=== PATIENT | male | born 1940 | race African-American/Black ===

== ENCOUNTER 2017-10-20 07:38 | Observation (INO) ==
[2017-10-20] MEDS ORDERED: Labetalol HCl Inj 100 MG/20 ML Vial IV.PUSH ONE ×2 (08:14→10:54)
[2017-10-20] MEDS ORDERED: Benzocaine 20% Oral Spray 60 ML Can OROPHARYNG ONE (08:21)
[2017-10-20 08:30] LABS: Hematocrit 46.8 % (39.0-51.0); Hemoglobin 15.8 gm/dL (13.0-17.0); Mean Corpuscular HGB Conc 33.8 % (32.0-36.0); Mean Corpuscular Hemoglobin 30.7 pg (27.0-34.0); Mean Corpuscular Volume 90.6 fL (80.0-100.0); Mean Platelet Volume 8.5 fL (7.0-11.0); Platelet Count 264 th/mm3 (150-450); Red Blood Count 5.17 mil/mm3 (4.50-5.90); Red Cell Distribution Width 13.5 % (11.6-17.2); White Blood Count 7.6 th/mm3 (4.0-11.0)
[2017-10-20 08:36] LABS: Activated Partial Thrombo Time 25.3 sec (24.3-30.1); INR 1.1 Ratio; Prothrombin Time 10.9 sec (9.8-11.6)
--- NOTE | 2017-10-20 08:47 | ED ---
HPI General Chief complaint: Medical Clearance Stated complaint: nosebleed Time Seen by Provider: 10/20/17 07:55 Source: patient, family and old records reviewed Mode of arrival: ambulatory Limitations: no limitations History of Present Illness HPI narrative: Patient is a 77-year-old male, past medical history significant for previous bladder cancer, hypertension, who presents with complaint of nosebleed. He states that he was here 2 days ago for nosebleed which had resolved prior to arrival. He was then discharged home. He woke up this morning with his sheets covered in blood and brisk bleeding coming out of bilateral nares worse on the left. Prior to 2 days ago this is never happened before. He denies any recent cold or allergy symptoms. He is not on any blood thinners and denies taking any aspirin or [id number] supplements. Onset (ago): minute(s) Location: face Radiation: non-radiation Severity: severe Pain Consistency: constant Relieving factors: none Exacerbating factors: none Associated symptoms: denies other symptoms Related Data Home Medications Medication Instructions Recorded Confirmed alprazolam 0.5 mg PO DAILY 10/17/17 10/20/17 hydrocodone-acetaminophen [[place]] 1 tab PO Q8HR PRN 10/17/17 10/20/17 lisinopril 20 mg PO DAILY 10/17/17 10/20/17 metoprolol tartrate 50 mg PO DAILY 10/17/17 10/20/17 tamsulosin [Flomax] 0.4 mg PO DAILY 10/17/17 10/20/17 Allergies Allergy/AdvReac Type Severity Reaction Status Date / Time No Known Allergies Allergy Unverified 10/17/17 06:28 Review of Systems ROS: all other systems reviewed are negative [facility] Medical History Medical History Bladder CA in situ (Acute) Hypertension (Acute) Social History Social History Substance History: Active Abuse Second Hand Smoke Exposure: Yes Smoking Status: Current every day smoker Tobacco Type: Cigarettes How Often Do You Have a Drink Containing Alcohol: Never Recent Travel in [facility] within the Last 8 Weeks: No Recent Out of Country Travel within the Last 8 Weeks: No Substance Abuse Detail Marijuana: Substance Use Status: Active Route Used Substance Abuse: By Mouth Immunization History Tetanus Immunization: <5 Years Hx Influenza Vaccine This Season: No Exam Narrative Exam Narrative: GENERAL: Well-appearing male with brisk bleeding from bilateral nares, coughing up clots of blood SKIN: Focused skin assessment warm/dry. HEAD: Atraumatic. Normocephalic. EYES: Pupils equal and round. No scleral icterus. No injection or drainage. ENT: Mucous membranes pink and moist, but covered in blood. Brisk bleeding from bilateral nares, worse on the left. No visible bleeding source NECK: Trachea midline. No JVD. CARDIOVASCULAR: Regular rate and rhythm. No murmur appreciated. Intact and equal peripheral pulses. RESPIRATORY: No accessory muscle use. Clear to auscultation. Breath sounds equal bilaterally. GASTROINTESTINAL: Abdomen soft, non-tender, nondistended. Hepatic and splenic margins not palpable. MUSCULOSKELETAL: No obvious deformities. No clubbing. No cyanosis. No edema. NEUROLOGICAL: Awake and alert. No obvious cranial nerve deficits. Motor grossly within normal limits. Normal speech. PSYCHIATRIC: Appropriate mood and affect; insight and judgment normal. Procedures Epistaxis Control Time Out Performed: Yes Nostril: left, right and bilateral Nose Prepped With: oxymetazoline Direct Inspection: unable to visualize Clots Removed by: blowing nose Cautery Used: none Device Inserted: nasal tampon Patient Tolerated Procedure: well Complications: pain Course Initial Documented Vital Signs Temperature 97.4 F L 10/20/17 07:42 Pulse Rate 90 10/20/17 07:42 Respiratory Rate 20 10/20/17 07:42 Blood Pressure 247/114 H 10/20/17 07:42 Pulse Oximetry 95 10/20/17 07:42 Last Documented Vital Signs Temperature 97.4 F L 10/20/17 07:42 Pulse Rate 65 10/20/17 08:40 Respiratory Rate 22 10/20/17 08:40 Blood Pressure 230/107 H 10/20/17 09:25 Pulse Oximetry 99 10/20/17 08:40 Critical Care Time Critical Care Time: Yes Total Critical Care Time: 40 Attestation: Aggregate critical care time was 40 minutes. Time to perform other separately billable procedures was not included in the critical care time. My time did not include minutes spent treating any other patients simultaneously or on activities that did not directly contribute to the patient's treatment. The services I provided to this patient were to treat and/or prevent clinically significant deterioration that could result in: , disability, hemorrhage. I provided critical care services requiring my management, as noted below: Chart data review, documentation time, medication orders and management, vital sign assessments/reviewing monitor data, ordering and reviewing lab tests, ordering and interpreting/reviewing x-rays and diagnostic studies, care of the patient and discussion of the patient with the admitting physicians. Medical Decision Making MDM Narrative Medical decision making narrative: Patient is a 77-year-old male who presents with complaint of epistaxis. He had profuse brisk bleeding on arrival but was hemodynamically stable. Blood pressure was markedly elevated and he was given 10 mg of labetalol while hemostasis was attempted. Afrin was placed in bilateral nostrils after clots were blown out and pressure was held. He continued to have bleeding at which time Hurricaine spray was applied and an anterior posterior pack was placed in the left nare. The bleeding then ceased. He was given his home antihypertensives but remains hypertensive. I spoke with the patient and his family member extensively who did not feel comfortable going home at this time. I then spoke with the admitting resident who agreed to the patient's admission. He has been given another dose of IV antihypertensive to try and control his hypertension. Medical Screen Exam Complete: Yes Emergency Medical Condition: Yes Differential Diagnosis Differential Diagnosis: Differential diagnosis includes but is not limited to anterior epistaxis, posterior epistaxis, platelet abnormality, anemia. Medical Records Medical records reviewed: Yes I reviewed the patient's medical records. Lab Data Lab results reviewed: Yes I reviewed the patient's lab results. Lab results narrative: Acutely unremarkable. Result diagrams: 10/20/17 08:15 10/20/17 08:15 Lab Results 10/20/17 10/20/17 10/20/17 Range/Units 08:15 08:15 08:15 WBC 7.6 (4.0-11.0) th/mm3 RBC 5.17 (4.50-5.90) mil/mm3 Hgb 15.8 (13.0-17.0) gm/dL Hct 46.8 (39.0-51.0) % MCV 90.6 (80.0-100.0) fL MCH 30.7 (27.0-34.0) pg MCHC 33.8 (32.0-36.0) % RDW 13.5 (11.6-17.2) % Plt Count 264 (150-450) th/mm3 MPV 8.5 (7.0-11.0) fL PT 10.9 (9.8-11.6) sec INR 1.1 Ratio APTT 25.3 (24.3-30.1) sec Sodium 144 (136-145) meq/L Potassium 4.0 (3.5-5.1) meq/L Chloride 108 H (98-107) meq/L Carbon Dioxide 28.6 (21.0-32.0) meq/L Anion Gap 7 (5-15) meq/L BUN 20 H (7-18) mg/dL Creatinine 1.67 H (0.60-1.30) mg/dL Estimated GFR 49 L (>89) mL/min Random Glucose 112 H (74-106) mg/dL Calcium 8.9 (8.5-10.1) mg/dL Discharge Plan Discharge Disposition Patient Disposition: 30 Still Patient Discharge Condition Condition: Stable Discharge Details Diagnosis: Posterior epistaxis, Hypertensive urgency Physicians Team ED Provider: Suzanna Ross Primary Care Provider: Ozzy Haque Rxs /Orders / Referrals /Forms Prescriptions: No Action lisinopril 20 mg Tablet 20 mg PO DAILY RF: 0 hydrocodone-acetaminophen [[place]] 10-325 mg Tablet 1 tab PO Q8HR PRN (Reason: Pain) RF: 0 metoprolol tartrate 50 mg Tablet 50 mg PO DAILY RF: 0 alprazolam 0.5 mg Tablet 0.5 mg PO DAILY RF: 0 tamsulosin [Flomax] 0.4 mg Capsule,Extended Release 24hr 0.4 mg PO DAILY RF: 0 Discharge Interventions Interventions: Vital Signs Last Done: 10/20/17 09:25 Status ED Status: With Doctor
[2017-10-20 08:48] LABS: Calcium 8.9 mg/dL (8.5-10.1); Carbon Dioxide 28.6 meq/L (21.0-32.0)
[2017-10-20] MEDS ORDERED: Lisinopril 20 MG Tablet PO ONE (09:32)
[2017-10-20] MEDS ORDERED: Metoprolol Tartrate 50 MG Tablet PO ONE (09:32)
--- NOTE | 2017-10-20 11:41 | P.HPFP ---
History of Present Illness Primary Care Physician: Ozzy Haque MD <Coy Fairbanks - 10/20/17 15:31> Ozzy Haque MD <Massimo Brooks III Hussein 10/20/17 11:41> History of Present Illness: Mr Schmidt is a 77 YO male with PMHx HTN, bladder cancer in situ, and recently seen in ED on Monday for nosebleed who presents to ED with nosebleed that was present when he woke up with blood all over his sheets. BP in ED is 230/105. He never had this problem prior to being seen for bladder cancer, but this is the second nosebleed this week. He is in the ED with his of 18 years, Ms Margy Baez. He measures his BP at home frequently but his reports his systolic BP is often at 200 or above. He takes Lisinopril 20 mg and Metoprolol tartrate 50 mg daily to manage his BP. He feels like his left eye has been watery for sometime now and has bilateral cataracts. His bladder cancer was found several years ago and treated non-surgically. He is scheduled for TURP in two weeks. He has smoked 1/2 ppd for >60 years, denies EtOH, and recreational drugs, except that there is distant past use of marijuana. Denies CP, SOB, dysuria, hematuria, abdominal pain, past kidney problems, denies dizziness, MARY, and visual changes. Fam Hx: Unsure of family Hx. Doesn't know what his mother and father from or at what ages. <Massimo Brooks III 10/20/17 15:22> - Diagnosis (1) Posterior epistaxis (2) Hypertensive urgency <Coy Fairbanks 10/20/17 15:31> (1) Posterior epistaxis (2) Hypertensive urgency <Massimo Brooks III 10/20/17 14:41> Review of Systems Constitutional: Denies chills, Denies fever(s), Denies headache(s) <Massimo Brooks III 10/20/17 15:22> Eyes: Reports other (bilateral cataracts), Denies change in vision <Massimo Brooks III 10/20/17 15:22> Ears, Nose, Mouth, and Throat: Reports nosebleed, Denies headache(s), Denies mouth lesions, Denies nasal trauma <Massimo Brooks III 10/20/17 15:22> Cardiovascular: Denies chest pain, Denies lightheadedness <Massimo Brooks III 10/20/17 15:22> Respiratory: Denies cough, Denies shortness of breath <Cecilia PATTONMassimo 15:22> Gastrointestinal: Denies abdominal pain, Denies black, tarry stools, Denies bright, red blood in stools, Denies loose stools, Denies nausea, Denies vomiting <Massimo Brooks III 10/20/17 15:22> Genitourinary: Denies blood in urine, Denies painful urination, Denies urinary frequency <Cecilia PATTONMassimo Savage 10/20/17 15:22> Skin/Breast: Denies changing lesions, Denies new lesions, Denies rash <Cecilia PATTONMassimo 10/20/17 15:22> Neurologic: Denies dizziness, Denies headache(s) <Cecilia PATTONMassimo H 15:22> PMFSH - History History Provided By: Patient <Massimo Brooks III 10/20/17 11:41> - Medical / Surgical Hx Neg / Unobtainable Surgical History: No Previous Surgery <Massimo Brooks III 10/20/17 12:22> - Medical History Medical History: Medical History (Last Reviewed 10/20/17 @ 08:46 by Suzanna Ross MD) Bladder CA in situ Hypertension <Coy Fairbanks 10/20/17 15:31> Medical History (Last Reviewed 10/20/17 @ 08:46 by Suzanna Ross MD) Bladder CA in situ Hypertension <Cecilia PATTONMassimo Savage 10/20/17 11:41> - Family History Family History: Family History (Last Updated 10/20/17 @ 12:11 by Massimo Brooks III, MD, R2) Other Family history unknown <Coy Fairbanks 10/20/17 15:31> Family History (Last Updated 10/20/17 @ 12:11 by Massimo Brooks III, MD, R2) Other Family history unknown <Cecilia PATTONMassimo Savage 10/20/17 15:22> - Tobacco History Second Hand Smoke Exposure: Yes <Massimo Brooks III 10/20/17 11:41> Tobacco Use In Past 30 Days: Yes <Massimo Brooks III 10/20/17 11:41> Smoking Status: Current every day smoker <Massimo Brooks III 10/20/17 11:41> Tobacco Type: Cigarettes <Massimo Brooks III 10/20/17 11:41> Packs Per Day: 0.5 <Massimo Brooks III 10/20/17 12:22> Years Smoked: 63 (since he was 13 yo) <Masismo Brooks III 10/20/17 12:22> - Alcohol History How Often Do You Have a Drink Containing Alcohol: Never <Massimo Brooks III 10/20/17 11:41> - Substance Use History Substance History: Past History <Massimo Brooks III 10/20/17 12:22> - Substance Use Type Marijuana Status: Active <Massimo Brooks III 10/20/17 11:41> Route Used: By Mouth <Massimo Brooks III 10/20/17 11:41> - Travel History Recent Travel in the [facility] Within the Last 8 Weeks: No <Massimo Brooks III 11:41> Recent Travel Out of the Country Within the Last 8 Weeks: No <Massimo Brooks III 10/20/17 11:41> - Immunization History Tetanus Immunization: <5 Years <Massimo Brooks III 10/20/17 11:41> Hx Influenza Vaccine This Season: No <Massimo Brooks III 10/20/17 11:41> Medications and Allergies Allergies Allergy/AdvReac Type Severity Reaction Status Date / Time No Known Allergies Allergy Unverified 10/17/17 06:28 <Coy Fairbanks - 10/20/17 15:31> Home Medications Medication Instructions Recorded Confirmed Type alprazolam 0.5 mg PO DAILY 10/17/17 10/20/17 History hydrocodone-acetaminophen [[place]] 1 tab PO Q8HR PRN 10/17/17 10/20/17 History lisinopril 20 mg PO DAILY 10/17/17 10/20/17 History metoprolol tartrate 50 mg PO DAILY 10/17/17 10/20/17 History tamsulosin [Flomax] 0.4 mg PO DAILY 10/17/17 10/20/17 History <MagdiCoy Nicole - 10/20/17 15:31> Active Medications: Active Medications Al Hydroxide/Mg Hydroxide (Milk Of Mary [place] Yo) 30 ml PO Q12H PRN PRN Reason: Mild Constipation Amlodipine Besylate (Norvasc) 5 mg PO DAILY [facility] Last Admin: 10/20/17 12:15 Dose: 5 mg Chlorthalidone (Hygroton) 25 mg PO DAILY [facility] Last Admin: 10/20/17 12:41 Dose: 25 mg Lisinopril (Prinivil) 20 mg PO DAILY [facility] Senna/Docusate Sodium (Maria-Colace) 1 tab PO BID [facility] Sennosides (Senokot) 17.2 mg PO Q12H PRN PRN Reason: Moderate Constipation <Coy Fairbanks 10/20/17 15:31> Exam Vital signs: Vital Signs 10/20/17 07:42 10/20/17 08:32 10/20/17 08:40 Temperature 97.4 F L Pulse Rate 90 86 65 Respiratory Rate 20 22 22 Blood Pressure 247/114 H 246/109 H 189/88 H Pulse Oximetry 95 100 99 10/20/17 09:25 10/20/17 11:50 10/20/17 11:55 Temperature Pulse Rate 65 61 Respiratory Rate 17 17 Blood Pressure 230/107 H 209/101 H 204/100 H Pulse Oximetry 99 98 10/20/17 12:43 Temperature Pulse Rate Respiratory Rate Blood Pressure 196/98 H Pulse Oximetry Intake & Output 10/19/17 10/20/17 10/20/17 18:59 06:59 18:59 Weight 117.934 kg <Coy Fairbanks 10/20/17 15:31> Vital Signs 10/20/17 07:42 10/20/17 08:32 10/20/17 08:40 Temperature 97.4 F L Pulse Rate 90 86 65 Respiratory Rate 20 22 22 Blood Pressure 247/114 H 246/109 H 189/88 H Pulse Oximetry 95 100 99 10/20/17 09:25 Temperature Pulse Rate Respiratory Rate Blood Pressure 230/107 H Pulse Oximetry Intake & Output 10/19/17 10/20/17 10/20/17 18:59 06:59 18:59 Weight 117.934 kg <Massimo Brooks III - 10/20/17 11:41> Narrative: GENERAL: Elderly AA male lying in bed with tamponade in left nare covered in blood and some blood on a towel and on the bed sheet. NAD. SKIN: Warm and dry. No lesion or rash. HEAD: Normocephalic. Atraumatic. Dentures appreciated in upper mouth with oropharynx clear. tamponade in left nare covered in blood; right nare clear. EYES: No scleral icterus. Watery drainage. Eyes are cloudy with cataracts bilaterally. NECK: Supple, trachea midline. No JVD or lymphadenopathy. CARDIOVASCULAR: Regular rate and rhythm without murmurs, gallops, or rubs. RESPIRATORY: Breath sounds equal bilaterally. No accessory muscle use. GASTROINTESTINAL: Abdomen soft, non-tender, nondistended. MUSCULOSKELETAL: No cyanosis, or edema. BACK: Nontender without obvious deformity. No CVA tenderness. <DuniaMassimo alcantara III - 10/20/17 15:22> Results - Labs Result diagrams: 10/20/17 08:15 10/20/17 08:15 <Coy Fairbanks - 10/20/17 15:31> Abnormal lab results 10/20/17 Range/Units 08:15 Chloride 108 H (98-107) meq/L BUN 20 H (7-18) mg/dL Creatinine 1.67 H (0.60-1.30) mg/dL Estimated GFR 49 L (>89) mL/min Random Glucose 112 H (74-106) mg/dL Short CBC 10/20/17 Range/Units 08:15 WBC 7.6 (4.0-11.0) th/mm3 Hgb 15.8 (13.0-17.0) gm/dL Hct 46.8 (39.0-51.0) % Plt Count 264 (150-450) th/mm3 [facility] 10/20/17 08:15 Sodium 144 Potassium 4.0 Chloride 108 H Carbon Dioxide 28.6 BUN 20 H Creatinine 1.67 H Calcium 8.9 Cardiac Enzymes 10/20/17 Range/Units 14:16 Troponin I 0.03 (0.02-0.05) ng/mL <Coy Fairbanks - 10/20/17 15:31> Abnormal lab results 10/20/17 Range/Units 08:15 Chloride 108 H (98-107) meq/L BUN 20 H (7-18) mg/dL Creatinine 1.67 H (0.60-1.30) mg/dL Estimated GFR 49 L (>89) mL/min Random Glucose 112 H (74-106) mg/dL Short CBC 10/20/17 Range/Units 08:15 WBC 7.6 (4.0-11.0) th/mm3 Hgb 15.8 (13.0-17.0) gm/dL Hct 46.8 (39.0-51.0) % Plt Count 264 (150-450) th/mm3 [facility] 10/20/17 08:15 Sodium 144 Potassium 4.0 Chloride 108 H Carbon Dioxide 28.6 BUN 20 H Creatinine 1.67 H Calcium 8.9 <Massimo Brooks III - 10/20/17 11:41> - Imaging Impressions Abdomen/Bladder Ultrasound 10/20/17 00:00 CONCLUSION: No evidence of hydronephrosis. <Coy Fairbanks - 10/20/17 15:31> Caprini VTE Risk Assessment Caprini VTE Risk Assessment: Moderate/High Risk (score >= 2) <Massimo Brooks III - 10/20/17 15:22> VTE Pharmacological Exception Reason: Active bleeding (nosebleed) <Massimo Brooks III - 10/20/17 15:22> Caprini Risk Assessment Model: Point Value = 1 Point Value = 2 Point Value = 3 Point Value = 5 Age 41-60 Minor surgery BMI > 25 kg/m2 Swollen legs Varicose veins or History of unexplained or recurrent spontaneous Oral contraceptives or hormone replacement Sepsis (< 1 month) Serious lung disease, including pneumonia (< 1 month) Abnormal pulmonary function Acute myocardial infarction Congestive heart failure (< 1 month) History of inflammatory bowel disease Medical patient at bed rest Age 61-74 Arthroscopic surgery Major open surgery (> 45 min) Laparoscopic surgery (> 45 min) Malignancy Confined to bed (> 72 hours) Immobilizing plaster cast Central venous access Age >= 75 History of VTE Family history of VTE Factor V Leiden Prothrombin 49519H Lupus anticoagulant Anticardiolipin antibodies Elevated serum homocysteine Heparin-induced thrombocytopenia Other congenital or acquired thrombophilia Stroke (< 1 month) Elective arthroplasty Hip, pelvis, or leg fracture Acute spinal cord injury (< 1 month) <Coy Fairbanks Nicole - 10/20/17 15:31> Prophylaxis Regimen: Total Risk Factor Score Risk Level Prophylaxis Regimen 0-1 Low Early ambulation 2 Moderate Order ONE of the following: *Sequential Compression Device (SCD) *Heparin 5000 units SQ BID 3-4 Higher Order ONE of the following medications: *Heparin 5000 units SQ TID *Enoxaparin/Lovenox 40 mg SQ daily (WT < 150 kg, CrCl > 30 mL/min) *Enoxaparin/Lovenox 30 mg SQ daily (WT < 150 kg, CrCl > 10-29 mL/min) *Enoxaparin/Lovenox 30 mg SQ BID (WT < 150 kg, CrCl > 30 mL/min) AND/OR *Sequential Compression Device (SCD) 5 or more Highest Order ONE of the following medications: *Heparin 5000 units SQ TID (Preferred with Epidurals) *Enoxaparin/Lovenox 40 mg SQ daily (WT < 150 kg, CrCl > 30 mL/min) *Enoxaparin/Lovenox 30 mg SQ daily (WT < 150 kg, CrCl > 10-29 mL/min) *Enoxaparin/Lovenox 30 mg SQ BID (WT < 150 kg, CrCl > 30 mL/min) AND *Sequential Compression Device (SCD) <Coy Fairbanks Nicole - 10/20/17 15:31> Assessment and Plan - Assessment (1) Posterior epistaxis Code(s): R04.0 - Epistaxis Status: Acute (2) Hypertensive urgency Code(s): I16.0 - Hypertensive urgency Status: Acute <Coy Fairbanks - 10/20/17 15:31> (1) Posterior epistaxis Code(s): R04.0 - Epistaxis Status: Acute (2) Hypertensive urgency Code(s): I16.0 - Hypertensive urgency Status: Acute <Massimo Brooks III - 10/20/17 14:41> - Assessment and Plan 77 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 Pt's "normal SBP usually in the 200s and 247/114 on admission in ED. One hour after Labetalol 20 mg IV, lisinopril 20 mg and Metoprolol tartrate 50 mg, pt's BP 204/100; following amlodipine 5 mg 12:15 and chlorthalidone 25 mg at 12:41, pt BP 196/98 at 12:43. Impression: -Labetalol -EKG pending -Troponin 0.03 -TSH 0.449 -Renal US negative -CBC wnl -CMP with BUN/Cr 1.67; Baseline Cr 1.4-1.5 over past 2 years Hypertensive urgency--first 24 hours goal is to reduce BP 10%; further depression could damage vascular beds -Goal: SBP 180-200 / DBP 90 -Chlorthalidone 25 mg PO daily -Amlodipine 5 mg PO daily -Lisinopril 20 mg daily -Metoprolol tartrate 50 mg once in ED; holding home dose -Normal renal US Recurrent nosebleeds -Tamponade PRN -Afrin 2 sprays in affected nostril PRN; discontinue within 10 days -Consider silver nitrate if Afrin and tamponade unsuccessful -Consider ENT referral FEN/GI/PPx: Fluids: PO fluids Electrolytes: wnl, will monitor daily and replete as necessary Nutrition: regular diet with sodium restriction </= 2 gm daily GI: not indicated PPx: SCDs; holding Lovenox due to nosebleeds PRN bowel regimen Pt SDW Evangelista Fairbanks and Ottoniel <Massimo Brooks III - 10/20/17 15:22> - Attending Attestation The exam, history, and the medical decision-making described in the above note were completed with the assistance of the resident physician. I reviewed and agree with the findings presented. I attest that I had a [id number] encounter with the patient on the same day, and personally performed and documented my assessment and findings in the medical record. I saw this patient personally at about 1:30 PM. Patient with history of uncontrolled hypertension and bladder cancer in situ presents with hypertensive urgency (without evidence of end organ damage) and epistaxis. Epistaxis is new, and this is his second episode. Hemoglobin is stable. Reports no coagulation disorders in family. No history of spontaneous bleeding in the past. Reports bladder cancer has shown no sign of recurrence to date and that he is followed by urologist. Basic coag panel is normal. Bleeding controlled with tamponade. Hypertension to be controlled in slow manner, no more than 25% in the first 24 hours. Will opt primarily for control with oral antihypertensives. He will need close follow up with primary care after discharge for more effective control of hypertension, and will stress to patient the importance of better hypertension control to prevent problems down the line. Also will need close follow up with urologist for history of bladder cancer for appropriate surveillance. Will need follow up with ENT after discharge for definitive management of epistaxis. Patient as of my exam is resting comfortably in bed and bleeding is controlled, no chest pain, shortness of breath, headache, blurry vision, leg swelling, abdominal pain, nausea, vomiting. <Coy Fairbanks - 10/20/17 15:31>
[2017-10-20] MEDS: amLODIPine 5 MG Tablet PO SCH (12:15)
[2017-10-20] MEDS: Chlorthalidone 50 MG Tablet PO SCH (12:41)
[2017-10-20] MEDS ORDERED: Enoxaparin Inj 30 MG/0.3 ML Syringe SQ SCH (14:00)
--- NOTE | 2017-10-20 14:22 | US ---
EXAM DATE: 10/20/2017 1:58 PM EDT AGE/SEX: 77 years / Male INDICATIONS: Increased BUN/Creatinine. CLINICAL DATA: This is the patient's initial encounter. Patient reports that signs and symptoms have been present for 1 day and indicates a pain score of 0/10. MEDICAL/SURGICAL HISTORY: Hypertension. Bladder cancer in situ. None. COMPARISON: No prior exams available for comparison. MEASUREMENTS: Right Kidney:__8.9 x 3.8 x 5.4 cm Left Kidney:__10.9 x 5.4 x 5.5 cm FINDINGS: Right Kidney: . No mass or hydronephrosis. Left Kidney: No mass or hydronephrosis. Bladder: Within normal limits given the degree of distension. Other: None. CONCLUSION: No evidence of hydronephrosis. Electronically signed by: Lisandro Fletcher MD 10/20/2017 2:20 PM EDT
[2017-10-20 14:50] LABS: Thyroid Stimulating Hormone 0.449 uIU/mL (0.358-3.740); Troponin I 0.03 ng/mL (0.02-0.05)
[2017-10-20] MEDS ORDERED: hydroCHLOROthiazide 25 MG Tablet PO SCH (18:00)
[2017-10-20] MEDS: Senna/Docusate Sodium 8.6/50 MG Tablet PO SCH (21:15)
[2017-10-21 05:37] LABS: Baso % (Auto) 0.4 % (0.0-2.0); Eos # (Auto) 0.3 th/mm3 (0.0-0.4); Eos % (Auto) 3.2 % (0.0-4.0); Hematocrit 43.7 % (39.0-51.0); Hemoglobin 14.6 gm/dL (13.0-17.0); Lymph # (Auto) 2.2 th/mm3 (1.0-4.8); Lymph % (Auto) 23.2 % (9.0-44.0); Mean Corpuscular HGB Conc 33.4 % (32.0-36.0); Mean Corpuscular Hemoglobin 30.6 pg (27.0-34.0); Mean Corpuscular Volume 91.5 fL (80.0-100.0); Mean Platelet Volume 9.3 fL (7.0-11.0); Mono # (Auto) 0.9 th/mm3 (0.0-0.9); Mono % (Auto) 9.9 % (0.0-8.0); Neut % (Auto) 63.3 % (16.0-70.0); Platelet Count 228 th/mm3 (150-450); Red Blood Count 4.78 mil/mm3 (4.50-5.90); Red Cell Distribution Width 13.5 % (11.6-17.2); White Blood Count 9.4 th/mm3 (4.0-11.0)
[2017-10-21 06:13] LABS: Calcium 9.2 mg/dL (8.5-10.1); Carbon Dioxide 26.9 meq/L (21.0-32.0); Potassium 3.6 meq/L (3.5-5.1)
[2017-10-21] MEDS ORDERED: Lisinopril 20 MG Tablet PO SCH (09:00)
[2017-10-21] MEDS: amLODIPine 5 MG Tablet PO SCH ×2 (10:24→11:53)
[2017-10-21] MEDS: Senna/Docusate Sodium 8.6/50 MG Tablet PO SCH ×2 (10:24→22:56)
[2017-10-21] MEDS: Chlorthalidone 50 MG Tablet PO SCH (10:24)
--- NOTE | 2017-10-21 14:44 | P.PN ---
Subjective Interval history: Today the patient was seen on rounds with his in the room. He states that he is feeling better but the Rhino-rocket is uncomfortable in his nose. His blood pressure was being managed by Dr. Haque with metoprolol and lisinopril. He takes his medications every day and monitors his pressure at home. His baseline is in the 200's. He denies and chest pain, SOB, headaches, vision changes, or weakness. He also says that he does not taste blood in the back of his throat anymore. He denies any fevers, N/V, or change in bowel habits. Physical Exam Vital signs: Vital Signs 10/20/17 16:00 10/20/17 19:49 10/21/17 00:00 Temperature 98.8 F 98.9 F 98.9 F Pulse Rate 67 70 64 Respiratory Rate 18 18 18 Blood Pressure 221/99 H 146/74 H 201/92 H Pulse Oximetry 98 95 99 10/21/17 04:00 10/21/17 08:00 10/21/17 12:00 Temperature 98.8 F 98.2 F 97.7 F Pulse Rate 70 77 63 Respiratory Rate 18 17 18 Blood Pressure 206/97 H 188/87 H 189/86 H Pulse Oximetry 100 98 99 10/21/17 12:15 Temperature 98.4 F Pulse Rate 59 L Respiratory Rate 17 Blood Pressure 185/87 H Pulse Oximetry 97 Intake & Output 10/20/17 10/21/17 10/21/17 18:59 06:59 18:59 Intake Total 360 / 360 100 / 100 Balance 360 / 360 100 / 100 Weight 117.934 kg Intake: Oral 360 / 360 100 / 100 Other: # Voids 2 3 # Bowel Movements 0 Weight On Admission 117.934 kg Narrative: GENERAL: Well-appearing male in no acute distress, sitting upright in bed. SKIN: Focused skin assessment warm/dry. HEAD: Atraumatic. Normocephalic. EYES: Pupils equal and round. No scleral icterus. No injection or drainage. ENT: Mucous membranes pink and moist, right nostril has mild dried blood in it. right nostril has the rhino-rocket that is soaked with dried blood. NECK: Trachea midline. No JVD. CARDIOVASCULAR: Regular rate and rhythm. No murmur appreciated. Intact and equal peripheral pulses. RESPIRATORY: No accessory muscle use. Clear to auscultation. Breath sounds equal bilaterally. GASTROINTESTINAL: Abdomen soft, non-tender, nondistended. MUSCULOSKELETAL: No obvious deformities. No clubbing. No cyanosis. No edema. NEUROLOGICAL: Awake and alert. No obvious cranial nerve deficits. Motor grossly within normal limits. Normal speech. Results - Labs CBC & Chem 7: 10/21/17 04:11 10/21/17 04:11 Laboratory Results - last 24 hr 10/20/17 10/20/17 10/21/17 14:16 20:10 04:11 WBC 9.4 RBC 4.78 Hgb 14.6 Hct 43.7 MCV 91.5 MCH 30.6 MCHC 33.4 RDW 13.5 Plt Count 228 MPV 9.3 Neut % (Auto) 63.3 Lymph % (Auto) 23.2 [place] % (Auto) 9.9 H Eos % (Auto) 3.2 Baso % (Auto) 0.4 Neut # (Auto) 6.0 Lymph # (Auto) 2.2 [place] # (Auto) 0.9 Eos # (Auto) 0.3 Baso # (Auto) 0.0 WBC Differential . Differential Comment Auto diff final Sodium Potassium Chloride Carbon Dioxide Anion Gap BUN Creatinine Estimated GFR Random Glucose Calcium Troponin I 0.03 0.04 TSH 0.449 10/21/17 04:11 WBC RBC Hgb Hct MCV MCH MCHC RDW Plt Count MPV Neut % (Auto) Lymph % (Auto) [place] % (Auto) Eos % (Auto) Baso % (Auto) Neut # (Auto) Lymph # (Auto) [place] # (Auto) Eos # (Auto) Baso # (Auto) WBC Differential Differential Comment Sodium 142 Potassium 3.6 Chloride 108 H Carbon Dioxide 26.9 Anion Gap 7 BUN 26 H Creatinine 1.61 H Estimated GFR 51 L Random Glucose 96 Calcium 9.2 Troponin I TSH Assessment and Plan - Plan 77 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 Pt's "normal SBP usually in the 200s and 247/114 on admission in ED. One hour after Labetalol 20 mg IV, lisinopril 20 mg and Metoprolol tartrate 50 mg, pt's BP 204/100; following amlodipine 5 mg 12:15 and chlorthalidone 25 mg at 12:41, pt BP 196/98 at 12:43. BP has been about 200 over night. We will schedule his clonidine. Impression: -Labetalol -EKG pending -Troponin 0.03 -TSH 0.449 -Renal US negative -CBC wnl -CMP with BUN/Cr 1.67; Baseline Cr 1.4-1.5 over past 2 years Hypertensive urgency--BP has come down but is still above 180 so we will adjust his medications to try and get him below 180/90 before we send him home. -Goal: SBP 180-200 / DBP 90 -Chlorthalidone 25 mg PO daily -increase Amlodipine to 10 mg PO daily- patient reports no edema -Lisinopril 20 mg daily -Metoprolol tartrate 50 mg once in ED; holding home dose -Normal renal US- renin and angiotensin labs are pending. -will add clonidine 0.1 mg Q8 hours PO to help with BP control Recurrent nosebleeds -Tamponade PRN -Afrin 2 sprays in affected nostril PRN; discontinue within 10 days -Consider silver nitrate if Afrin and tamponade unsuccessful -We plan to remove the posterior packing tomorrow- it has been in for 24 hours so far. -Consider ENT referral FEN/GI/PPx: Fluids: PO fluids Electrolytes: wnl, will monitor daily and replete as necessary Nutrition: regular diet with sodium restriction </= 2 gm daily GI: not indicated PPx: SCDs; holding Lovenox due to nosebleeds PRN bowel regimen - Attending Attestation The exam, history, and the medical decision-making described in the above note were completed with the assistance of the resident physicians and medical student. I reviewed and agree with the findings presented. I attest that I had a [id number] encounter with the patient on the same day, and personally performed and documented my assessment and findings in the medical record. This morning patient remains asymptomatic other than occasional small amounts of blood from the left nostril (right nostril still has nasal rocket in place). Blood pressures are improving, now in the upper 100's systolic and upper 90's diastolic. We have added chlorthalidone and calcium channel fernandez to his regimen (he was already on beta fernandez and keny inhibitor), and we are titrating doses to effect. We also added clonidine today to his regimen. Renin/ aldosterone has been ordered. We stressed importance to he and his about the need for close follow up with primary care physician for long-term control of blood pressure and consequences of long-standing uncontrolled hypertension. Plan for epistaxis is to possibly remove the nasal rocket tomorrow, and follow up with ENT as an outpatient for definitive management.
[2017-10-21 16:14] VITALS: RESP 18
--- NOTE | 2017-10-21 22:12 | ECG ---
Date Performed: 10/20/2017 Time Performed: 18:13:27 PTAGE: 77 years EKG: Sinus rhythm POSSIBLE LEFT ATRIAL ENLARGEMENT MARKED LEFT AXIS DEVIATION ST DEVIATION AND MODERATE T-WAVE ABNORMA LITY, CONSIDER LATERAL ISCHEMIA ABNORMAL ECG PREVIOUS TRACING : 08/18/2014 14.22 DOCTOR: Silvia Alexander Interpretating Date/Time 10/21/2017 22:09:04
[2017-10-22 04:45] LABS: Hematocrit 41.5 % (39.0-51.0); Hemoglobin 13.8 gm/dL (13.0-17.0)
[2017-10-22 05:11] LABS: Calcium 8.6 mg/dL (8.5-10.1); Carbon Dioxide 28.2 meq/L (21.0-32.0); Potassium 3.7 meq/L (3.5-5.1)
[2017-10-22 05:38] VITALS: TEMP 98.3
[2017-10-22 08:19] VITALS: BP 145/70; PULSE 56; O2SAT 96
[2017-10-22] MEDS: Chlorthalidone 50 MG Tablet PO SCH (08:20)
[2017-10-22] MEDS: Senna/Docusate Sodium 8.6/50 MG Tablet PO SCH (08:21)
[2017-10-22] MEDS: amLODIPine 5 MG Tablet PO SCH (08:21)
[2017-10-22] MEDS ORDERED: Lisinopril 5 MG Tablet PO SCH (09:00)
--- NOTE | 2017-10-22 11:33 | P.PNFP ---
Subjective Interval history: Mr Schmidt had no acute events overnight. He is eating, drinking, voiding, stooling and no current nosebleed. His HTN is well controlled on the current regimen with only concern this morning about slightly elevated Cr at 1.7 with a baseline around 1.5. His Rhino-rocket nose tamponade came out last night and was inspected by Dr Wilkerson and did not require replacement. Pt reports no issues overnight and is comfortable and feels stable to discharge today. Denies CP, SOB , N/V/D, abdominal or leg pain, dizziness upon standing. <Massimo Brooks III - 10/22/17 11:33> Results - Labs Result diagrams: 10/22/17 04:15 10/22/17 04:15 <Coy Fairbanks - 10/22/17 12:37> Abnormal lab results 10/22/17 Range/Units 04:15 BUN 21 H (7-18) mg/dL Creatinine 1.74 H (0.60-1.30) mg/dL Estimated GFR 46 L (>89) mL/min Short CBC 10/22/17 Range/Units 04:15 Hgb 13.8 (13.0-17.0) gm/dL Hct 41.5 (39.0-51.0) % [facility] 10/22/17 04:15 Sodium 142 Potassium 3.7 Chloride 105 Carbon Dioxide 28.2 BUN 21 H Creatinine 1.74 H Calcium 8.6 <Coy Fairbanks L - 10/22/17 12:37> Abnormal lab results 10/22/17 Range/Units 04:15 BUN 21 H (7-18) mg/dL Creatinine 1.74 H (0.60-1.30) mg/dL Estimated GFR 46 L (>89) mL/min Short CBC 10/22/17 Range/Units 04:15 Hgb 13.8 (13.0-17.0) gm/dL Hct 41.5 (39.0-51.0) % [facility] 10/22/17 04:15 Sodium 142 Potassium 3.7 Chloride 105 Carbon Dioxide 28.2 BUN 21 H Creatinine 1.74 H Calcium 8.6 <Massimo Brooks III - 10/22/17 11:33> Physical Exam Vital signs: Vital Signs 10/21/17 16:00 10/21/17 20:00 10/22/17 00:00 Temperature 98.4 F 100.1 F H 99 F Pulse Rate 66 69 78 Respiratory Rate 18 18 18 Blood Pressure 180/87 H 151/70 H 152/69 H Pulse Oximetry 98 97 95 10/22/17 00:05 10/22/17 04:00 10/22/17 05:50 Temperature 98.3 F 98.3 F Pulse Rate 69 58 L 61 Respiratory Rate 18 18 Blood Pressure 127/69 127/69 Pulse Oximetry 98 10/22/17 08:00 Temperature 98.3 F Pulse Rate 56 L Respiratory Rate 18 Blood Pressure 145/70 H Pulse Oximetry 96 Intake & Output 10/21/17 10/22/17 10/22/17 18:59 06:59 18:59 Intake Total 250 / 250 Balance 250 / 250 Weight 117.934 kg Intake: Oral 250 / 250 Other: # Voids 3 Date of Last Bowel Movement 10/22/17 10/22/17 # Bowel Movements 1 <Coy Fairbanks L - 10/22/17 12:37> Vital Signs 10/21/17 12:00 10/21/17 12:15 10/21/17 16:00 Temperature 97.7 F 98.4 F 98.4 F Pulse Rate 63 59 L 66 Respiratory Rate 18 17 18 Blood Pressure 189/86 H 185/87 H 180/87 H Pulse Oximetry 99 97 98 10/21/17 20:00 10/22/17 00:00 10/22/17 00:05 Temperature 100.1 F H 99 F Pulse Rate 69 78 69 Respiratory Rate 18 18 Blood Pressure 151/70 H 152/69 H Pulse Oximetry 97 95 10/22/17 04:00 10/22/17 05:50 10/22/17 08:00 Temperature 98.3 F 98.3 F 98.3 F Pulse Rate 58 L 61 56 L Respiratory Rate 18 18 18 Blood Pressure 127/69 127/69 145/70 H Pulse Oximetry 98 96 Intake & Output 10/21/17 10/22/17 10/22/17 18:59 06:59 18:59 Intake Total 250 / 250 Balance 250 / 250 Weight 117.934 kg Intake: Oral 250 / 250 Other: # Voids 3 Date of Last Bowel Movement 10/22/17 10/22/17 # Bowel Movements 1 <Massimo Brooks III H - 10/22/17 11:33> Narrative: GENERAL: Well-appearing elderly male in no acute distress, sitting upright in bed. The tamponade in his nose is gone. SKIN: Skin is warm/dry without lesions or rash. HEAD: Atraumatic. Normocephalic. EYES: Pupils equal and round. No scleral icterus. No injection or drainage. ENT: Mucous membranes pink and moist, is clear without bleeding. NECK: Trachea midline. No JVD. CARDIOVASCULAR: Regular rate and rhythm. No murmur appreciated. Intact and equal peripheral pulses. RESPIRATORY: No accessory muscle use. Clear to auscultation. Breath sounds equal bilaterally. GASTROINTESTINAL: Abdomen soft, non-tender, nondistended. +BS. MUSCULOSKELETAL: No obvious deformities. No clubbing. No cyanosis. No edema. NEUROLOGICAL: Awake and alert. No obvious cranial nerve deficits. Motor grossly within normal limits. Normal speech. 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 Pt's "normal SBP usually in the 200s and 247/114 on admission in ED. One hour after Labetalol 20 mg IV, lisinopril 20 mg and Metoprolol tartrate 50 mg, pt's BP 204/100; following amlodipine 5 mg 12:15 and chlorthalidone 25 mg at 12:41, pt BP 196/98 at 12:43. Impression: -Labetalol -EKG pending -Troponin 0.03 -TSH 0.449 -Renal US negative -CBC wnl -CMP with BUN/Cr 1.67; Baseline Cr 1.4-1.5 over past 2 years 1. Hypertensive urgency--stable/controlled. BPs overnight in low 150s/70s until midnight, then 120s/70s until 8AM with 147/70 prior to morning BP meds -Goal: SBP<150 / DBP< 90 -Chlorthalidone 25 mg PO daily -Amlodipine 10 mg PO daily -Lisinopril 5 mg daily -Clonidine 0.1 mg q6h PRN IF SBP>180 and/or DBP>95 -Holding Metoprolol tartrate 50 mg due to lowered HR -Normal renal US -Will discharge with the 2. Recurrent nosebleeds--stable/controlled -Rhino rocket tamponade came out last night with no recurrent bleeding -Tamponade PRN -Afrin 2 sprays in affected nostril PRN; discontinue within 10 days -Consider silver nitrate if Afrin and tamponade unsuccessful -ENT referral on discharge as outpt 3. FEN/GI/PPx: Fluids: PO fluids Electrolytes: wnl, will monitor daily and replete as necessary Nutrition: regular diet with sodium restriction </= 2 gm daily GI: not indicated PPx: SCDs; holding Lovenox due to nosebleeds PRN bowel regimen Dispo: discharge today Pt DW Dr Fairbanks <Cecilia PATTONMassimo - 10/22/17 11:33> - Attending Attestation I reviewed and agree with the findings presented by the resident physician. Patient presented with hypertensive urgency with no evidence of end organ damage and epistaxis exacerbated by hypertension. His blood pressures are now under good control after addition oral agents. He will need close follow up with primary care physician which was stressed to him several times during hospitalization, and he plans to do this. Consequences of long-standing hypertension were reiterated several times. Nasal tamponade was removed and epistaxis has not recurred to date. He will follow up closely with ENT for definitive evaluation and management of epistaxis. <Coy Fairbanks - 10/22/17 12:37>
--- NOTE | 2017-10-23 21:52 | P.DS ---
Date of admission: 10/20/17 11:38 Primary care physician: Ozzy Haque MD Attending physician on discharge: Coy Fairbanks Anticipated date of discharge: 10/22/17 Brief History from admission: Mr Schmidt is a 77 YO male with PMHx HTN, bladder cancer in situ, and recently seen in ED on Monday for nosebleed who presents to ED with nosebleed that was present when he woke up with blood all over his sheets. BP in ED is 230/105. He never had this problem prior to being seen for bladder cancer, but this is the second nosebleed this week. He is in the ED with his of 18 years, Ms Margy Baez. He measures his BP at home frequently but his reports his systolic BP is often at 200 or above. He takes Lisinopril 20 mg and Metoprolol tartrate 50 mg daily to manage his BP. He feels like his left eye has been watery for sometime now and has bilateral cataracts. His bladder cancer was found several years ago and treated non-surgically. He is scheduled for TURP in two weeks. He has smoked 1/2 ppd for >60 years, denies EtOH, and recreational drugs, except that there is distant past use of marijuana. Denies CP, SOB, dysuria, hematuria, abdominal pain, past kidney problems, denies dizziness, MARY, and visual changes. Fam Hx: Unsure of family Hx. Doesn't know what his mother and father from or at what ages. Patient update on day of discharge: Pt BP on discharge 120s-140s /70s, afebrile, nosebleed had stopped and Rhino- rocket nose tamponade had been discontinued. Physical exam benign DS: Diagnosis - Discharge Diagnosis (1) Posterior epistaxis Status: Acute (2) Hypertensive urgency Status: Acute DS: Medications - Discharge Medications Prescriptions: amlodipine [Norvasc] 10 mg PO DAILY #30 tab chlorthalidone 25 mg PO DAILY 30 Days #60 tab clonidine HCl [Catapres] 0.1 mg PO Q6H PRN #90 tab PRN Reason: Blood Pressure Management lisinopril 5 mg PO DAILY #30 tab DS: Summary Hospital Course: Mr Schmidt is a 77 YO male with PMHx HTN, bladder cancer in situ, and recently seen in ED for nosebleed who presents to ED with nosebleed that was present when he woke up with blood all over his sheets and with Hypertensive urgency. BP on presentation was 247/114 with history of "normal" daily BPs systolic in 200s. Pt was on lisinopril and metoprolol on presentation with no stated cardiac history. Pt appears to have baseline Cr in 1.4-1.5 range and pt's Cr was slightly elevated above baseline to 1.6-1.7. There were no CP, SOB, or other sxs. A renal ultrasound revealed no cause for HTN. A CTA of abdomen was contemplated but then discarded as pt has elevated Cr and likely would not have tolerated contrast well. Testing for Renin and Aldosterone levels is still pending. A Rhino-rocket tamponade was placed in the right posterior nostril in the ED with no concern for a nasal lesion. In ED Labetalol 20 mg IV, metoprolol and lisinopril were administered with little to no effect. Pts systolic BP still >200 and diastolic BP >100. Plan was developed to lower BP using std of care medications for -[place] male without diabetes. Pt was already on an MELVI (lisinopril), so we added a diuretic (chlorthalidone) and a calcium channel fernandez (amlodipine). Pt's HR was decreased into the 50s, so we decided to stop metoprolol. We added Clonidine 0.1 mg q6h scheduled until BP responded, then made Clonidine a PRN medication for any BP elevation with SBP >180 and/or diastolic BP >90. There was concern about the length of time the tamponade was kept in place and the plan was to remove the tamponade on the morning the pt discharged; however, the tamponade fell out during the night before discharge with no residual bleeding. On day of discharge, we recommended pt continue to check BP at home as he has done in the past; however, we would like to keep him on chlorthalidone 25 mg, amlodipine 10 mg, lisinopril 5 mg (dose lowered for renal protection), and clonidine 0.1 mg PRN for uncontrolled SBP >150 and/or DBP >90. Pt will see his primary care doctor in one week and follow up with an ENT in 2-3 weeks due to recurrent nosebleeds and to rule out any other possible cause of nosebleed. Pt was also advised to use Afrin 2 sprays per nostril if nosebleed occurs again. - Time Spent with Patient Total time spent providing and/or coordinating discharge services: Less than 30 minutes - Quality: AMI Clinical Trial Participant: No - Quality: VTE Deep Vein Thrombosis/Pulmonary Embolism Present on Admission: No Exam Narrative: GENERAL: Well-appearing elderly male in no acute distress, sitting upright in bed. The tamponade in his nose is gone. SKIN: Skin is warm/dry without lesions or rash. HEAD: Atraumatic. Normocephalic. EYES: Pupils equal and round. No scleral icterus. No injection or drainage. ENT: Mucous membranes pink and moist, is clear without bleeding. NECK: Trachea midline. No JVD. CARDIOVASCULAR: Regular rate and rhythm. No murmur appreciated. Intact and equal peripheral pulses. RESPIRATORY: No accessory muscle use. Clear to auscultation. Breath sounds equal bilaterally. GASTROINTESTINAL: Abdomen soft, non-tender, nondistended. +BS. MUSCULOSKELETAL: No obvious deformities. No clubbing. No cyanosis. No edema. NEUROLOGICAL: Awake and alert. No obvious cranial nerve deficits. Motor grossly within normal limits. Normal speech. Results Procedures completed during hospitalization: none - Impressions ITS Impressions Abdomen/Bladder Ultrasound 10/20/17 00:00 CONCLUSION: No evidence of hydronephrosis. Discharge Plan - Discharge Disposition Patient Disposition: 01 Discharge Home - Discharge Condition Condition: Stable - Discharge Order Discharge Orders: Discharge Order (Routine); Ordered 10/22/17 Ordered By: Massimo Brooks III - Discharge Details Anticipated Discharge Date: 10/22/17 - Physicians Team Primary Care Provider: Ozzy Haque Attending Provider: Coy Fairbanks
== END 2017-10-22 13:50 | disposition home or self-care (01) ==
LOC: NEPE 07:38 → INTOOBSV 11:23 → NEDA 11:23 → N06 13:23
PROVIDERS: ADMIT Family Medicine; ATTEND Family Medicine